=== PATIENT | male | born 1950 | race Caucasian/White ===

== ENCOUNTER 2017-01-16 07:46 | Outpatient (CLI) | payer MEDICARE, OTHER ==
[2017-01-16 08:46] LABS: BASOPHILS % (AUTO) 0.6 %; EOSINOPHILS # (AUTO) 0.3 10^3/uL (0.0-0.7); EOSINOPHILS % (AUTO) 4.1 %; HCT - HEMATOCRIT 36.7 % (42.0-52.0); HGB - HEMOGLOBIN 12.8 g/dL (14.0-18.0); LYMPHOCYTES # (AUTO) 0.6 10^3/uL (1.5-3.5); LYMPHOCYTES % (AUTO) 10.4 %; MEAN CORPUSCULAR HGB CONC 34.8 g/dL (32.0-36.0); MEAN CORPUSCULAR VOLUME 91.8 fL (80.0-94.0); MONOCYTES # (AUTO) 0.8 10^3/uL (0.0-1.0); MONOCYTES % (AUTO) 13.3 %; NEUTROPHILS # (AUTO) 4.4 10^3/uL (1.5-6.6); NEUTROPHILS % (AUTO) 71.6 %; RED CELL DISTRIBUTION WIDTH 14.7 % (12.0-15.0); UNCORRECTED WHITE BLOOD COUNT 6.1 x10^3/uL; WHITE BLOOD COUNT 6.1 x10^3/uL (4.8-10.8)
[2017-01-16 09:13] LABS: ALBUMIN/GLOBULIN RATIO 1.1 (1.0-2.2); BILIRUBIN,TOTAL 0.4 mg/dL (0.2-1.0); BUN - BLOOD UREA NITROGEN 14 mg/dL (6-20); CARBON DIOXIDE - CO2 27 mmol/L (21-32); CHLORIDE 101 mmol/L (101-111); CHOL/HDL RATIO 5.9 (<5.0); CHOLESTEROL 142 mg/dL; CREATININE 1.2 mg/dL (0.6-1.2); GFR - MDRD 61 (>89); GLUCOSE 107 mg/dL (70-100); HDL CHOLESTEROL 24 mg/dL; LDL/HDL RATIO 1.7 (<3.6); POTASSIUM 3.7 mmol/L (3.5-5.0); SODIUM 137 mmol/L (135-145); TOTAL PROTEIN 7.6 g/dL (6.7-8.2); TRIGLYCERIDES 386 mg/dL; VLDL CHOLESTEROL 77 mg/dL
[2017-01-16 09:18] LABS: BILIRUBIN,URINE NEGATIVE (NEGATIVE)
[2017-01-16 09:51] LABS: THYROID STIMULATING HORMONE 8.7 uIU/mL (0.34-5.60)
[2017-01-16 10:01] LABS: UR CULTURE IF IND NOT INDICATED; WBC,URINE 0-3 /HPF (0-3)
== END 2017-01-16 07:47 | disposition home or self-care (01) ==
LOC: LAB 07:46
PROVIDERS: ATTEND Family Medicine
DX: I10 Essential (primary) hypertension (principal); E78.5 Hyperlipidemia, unspecified; E03.9 Hypothyroidism, unspecified; D50.9 Iron deficiency anemia, unspecified; M34.81 Systemic sclerosis with lung involvement
CPT/HCPCS: 36415; 80053; 80061; 81001; 84439; 84443; 85025; 87086

== ENCOUNTER 2017-04-01 08:55 | Outpatient (CLI) | payer MEDICARE, OTHER ==
[2017-04-01 13:06] LABS: BASOPHILS # (AUTO) 0.1 10^3/uL (0.0-0.1); BASOPHILS % (AUTO) 0.7 %; EOSINOPHILS # (AUTO) 0.3 10^3/uL (0.0-0.7); EOSINOPHILS % (AUTO) 3.3 %; HGB - HEMOGLOBIN 12.2 g/dL (14.0-18.0); LYMPHOCYTES # (AUTO) 0.8 10^3/uL (1.5-3.5); LYMPHOCYTES % (AUTO) 9.2 %; MEAN CORPUSCULAR HEMOGLOBIN 31.1 pg (27.0-31.0); MEAN CORPUSCULAR VOLUME 91.5 fL (80.0-94.0); MEAN PLATELET VOLUME 9.1 fL (7.4-11.4); MONOCYTES % (AUTO) 11.5 %; NEUTROPHILS # (AUTO) 6.6 10^3/uL (1.5-6.6); NEUTROPHILS % (AUTO) 75.3 %; PLT - PLATELET COUNT 173 10^3/uL (130-450); RED BLOOD COUNT 3.93 10^6/uL (4.70-6.10); RED CELL DISTRIBUTION WIDTH 14.4 % (12.0-15.0); WHITE BLOOD COUNT 8.7 x10^3/uL (4.8-10.8)
== END 2017-04-01 08:56 | disposition home or self-care (01) ==
LOC: LAB.WCP 08:55
PROVIDERS: ATTEND Family Medicine
DX: M79.671 Pain in right foot (principal); D50.9 Iron deficiency anemia, unspecified
CPT/HCPCS: 36415; 85025

== ENCOUNTER 2017-04-25 07:11 | Outpatient (CLI) | payer MEDICARE, OTHER ==
[2017-04-25 08:08] LABS: HB2 TOTAL 13.2 g/dL; HEMOGLOBIN A1C 0.58 g/dL; HEMOGLOBIN A1C % 6.2 % (4.6-6.2)
[2017-04-25 08:09] LABS: ALBUMIN/GLOBULIN RATIO 1.1 (1.0-2.2); ALKALINE PHOSPHATASE 69 IU/L (42-121); ALT ALANINE AMINOTRANSFERASE 64 IU/L (10-60); AST ASPARTATE AMINOTRANSFERASE 32 IU/L (10-42); BILIRUBIN,TOTAL 0.7 mg/dL (0.2-1.0); BUN - BLOOD UREA NITROGEN 17 mg/dL (6-20); CARBON DIOXIDE - CO2 28 mmol/L (21-32); CHLORIDE 98 mmol/L (101-111); CHOL/HDL RATIO 4.3 (<5.0); CHOLESTEROL 130 mg/dL; CREATININE 1.1 mg/dL (0.6-1.2); GFR - MDRD 67 (>89); GLUCOSE 105 mg/dL (70-100); HDL CHOLESTEROL 30 mg/dL; LDL CHOLESTEROL,CALCULATED 58 mg/dL; LDL/HDL RATIO 1.9 (<3.6); SODIUM 134 mmol/L (135-145); TOTAL PROTEIN 7.5 g/dL (6.7-8.2); URIC ACID 6.6 mg/dL (2.6-7.2); VLDL CHOLESTEROL 42 mg/dL
[2017-04-25 08:21] LABS: THYROID STIMULATING HORMONE 6.81 uIU/mL (0.34-5.60)
[2017-04-25 08:23] LABS: FREE T4 (FREE THYROXINE) 0.83 ng/dL (0.58-1.64)
== END 2017-04-25 07:12 | disposition home or self-care (01) ==
LOC: LAB 07:11
PROVIDERS: ATTEND Family Medicine
DX: E78.5 Hyperlipidemia, unspecified (principal); G62.9 Polyneuropathy, unspecified; E03.9 Hypothyroidism, unspecified; I10 Essential (primary) hypertension; Z79.899 Other long term (current) drug therapy
CPT/HCPCS: 36415; 80053; 80061; 83036; 83721; 84439; 84443; 84481; 84550

== ENCOUNTER 2017-04-25 07:28 | Emergency (ER) | payer MEDICARE, OTHER ==
--- NOTE | 2017-04-25 08:15 | ED Physician Documentation ---
PD HPI URI - Stated complaint Stated Complaint: CHEST CONGESTION,WHEEZING - Chief complaint Chief Complaint: Resp - History obtained from History obtained from: Patient - History of Present Illness Timing - onset: How many days ago (4) Timing duration: Days Timing details: Gradual onset, Still present (worsening with some productive cough and feeling wheezing.) Associated symptoms: Chills, Productive cough, Dyspnea. No: Fever, Hemoptysis, Chest pain, Bilateral edema Contributing factors: Immunocompromised. No: Sick contact, Travel, COPD / asthma Similar symptoms before: Has not had sx before Recently seen: Clinic (he is on investigational drug for pulmonary HTN which is immune suppressing (combination med with Cellcept).) Review of Systems Constitutional: reports: Chills, Myalgias, Fatigue. denies: Fever Nose: reports: Rhinorrhea / runny nose, Congestion Throat: denies: Sore throat Cardiac: denies: Palpitations Respiratory: reports: Cough, Wheezing GI: reports: Nausea. denies: Abdominal Pain, Vomiting, Diarrhea Skin: denies: Rash, Lesions PD PAST MEDICAL HISTORY - Past Medical History Past Medical History: Yes Cardiovascular: Other (pulmonary HTN) - Present Medications Home Medications: Ambulatory Orders Medication Instructions Recorded Confirmed Albuterol Sulf [Ventolin Hfa 1 - 2 puffs INH Q4HR PRN #1 inhaler 04/25/17 Inhaler] Alpha Lipoic Acid 600 mg PO TID 04/25/17 04/25/17 Amitriptyline [Elavil] 25 mg PO DAILY 04/25/17 04/25/17 Aspirin [Aspirin EC] 81 mg PO DAILY 04/25/17 04/25/17 Azithromycin [Zithromax] 250 mg PO DAILY #6 tablet 04/25/17 Benzonatate [Tessalon] 100 mg PO TID PRN #25 capsule 04/25/17 Carvedilol 25 mg PO BID 04/25/17 04/25/17 DULoxetine [Cymbalta] 30 mg PO DAILY 04/25/17 04/25/17 Dexamethasone [Decadron] 4 mg PO DAILY #5 tablet 04/25/17 Ferrous Sulfate 1 tab PO BID 04/25/17 04/25/17 Finasteride 5 mg PO DAILY 04/25/17 04/25/17 Gabapentin 600 mg PO DAILY 04/25/17 04/25/17 Hydrochlorothiazide 25 mg PO DAILY 04/25/17 04/25/17 Levothyroxine [Synthroid] 125 mcg PO DAILY 04/25/17 04/25/17 Losartan Potassium 25 mg PO DAILY 04/25/17 04/25/17 Macitentan [Opsumit] 10 mg PO DAILY 04/25/17 04/25/17 Mycophenolate Mofetil [Cellcept] 500 mg PO BID 04/25/17 04/25/17 [place]-3/Dha/Epa/Fish Oil [Fish Oil 1 tab PO BID 04/25/17 04/25/17 1,000 mg Softgel] Terazosin [Hytrin] 10 mg PO DAILY 04/25/17 04/25/17 Valacyclovir HCl [Valacyclovir] 250 mg PO DAILY 04/25/17 04/25/17 Vit B Cmplx 3/FA/Vit C/Biotin 1 tab PO DAILY 04/25/17 04/25/17 [Katina-Dayanna Rx Tablet] - Allergies Allergies/Adverse Reactions: Allergies Allergy/AdvReac Type Severity Reaction Status Date / Time Penicillins Allergy Anaphylaxis Verified 04/25/17 07:42 - Living Situation Living Arrangement: reports: At home - Social History Does the pt smoke?: No - Family History Family history: reports: Non contributory PD ED PE NORMAL - Vitals Vital signs reviewed: Yes - General General: Alert and oriented X 3, No acute distress, Well developed/nourished - HEENT HEENT: Ears normal, Pharynx benign - Neck Neck: Supple, no meningeal sign, No adenopathy - Cardiac Cardiac: RRR, No murmur - Respiratory Respiratory: Clear bilaterally - Abdomen Abdomen: Soft, Non tender - Derm Derm: Normal color, Warm and dry, No rash Results - Vitals Vitals: Vital Signs - 24 hr 04/25/17 04/25/17 07:37 09:06 Temperature 37.1 C 36.7 C Heart Rate 79 68 Respiratory 16 15 Rate Blood Pressure 115/55 L 123/68 O2 Saturation 94 94 Oxygen O2 Source Room air PD MEDICAL DECISION MAKING - ED course Complexity details: re-evaluated patient (most likely is viral URI but with his immune suppression, would cover with abx as well. No signs of pneumonia. ), considered differential, d/w patient Departure - Departure Disposition: 01 Home, Self Care Clinical Impression: Upper respiratory infection Qualifiers: URI type: unspecified URI Qualified Code(s): J06.9 - Acute upper respiratory infection, unspecified Condition: Stable Record reviewed to determine appropriate education?: Yes Follow-Up: Chelsea Beltre MD [Primary Care Provider] - Prescriptions: Albuterol Sulf [Ventolin Hfa Inhaler] 1 - 2 puffs INH Q4HR PRN #1 inhaler PRN Reason: Shortness Of Air/Wheezing Azithromycin [Zithromax] 250 mg PO DAILY #6 tablet Benzonatate [Tessalon] 100 mg PO TID PRN #25 capsule PRN Reason: Cough Dexamethasone [Decadron] 4 mg PO DAILY #5 tablet Comments: Drink lots of fluids. Continue usual medications. Zithromax antibiotic for 5 days. Decadron steroid for 5 days. Use albuterol inhaler 2 puffs 4 times a day for the next 7-10 days. Tessalon if needed for cough. Recheck if not improving over the next few days and sooner if worse. Discharge Date/Time: 04/25/17 09:08
[2017-04-25] MEDS ORDERED: DEXAMETHASONE 10 MG/ML VIAL PO STA (08:32)
[2017-04-25] MEDS ORDERED: BENZONATATE 100 MG CAPSULE PO STA (08:32)
[2017-04-25 09:08] VITALS: BP 123/68
== END 2017-04-25 09:08 | disposition home or self-care (01) ==
LOC: ED 07:28
DX: J06.9 Acute upper respiratory infection, unspecified (principal); E78.5 Hyperlipidemia, unspecified; G62.9 Polyneuropathy, unspecified; E03.9 Hypothyroidism, unspecified; I10 Essential (primary) hypertension; Z79.899 Other long term (current) drug therapy
CPT/HCPCS: 36415; 80053; 80061; 83036; 84439; 84443; 84481; 84550; 99283; A9270; 83721

== ENCOUNTER 2017-05-14 13:27 | Outpatient (CLI) | payer MEDICARE, OTHER | END 2017-05-14 13:28 | disposition home or self-care (01) | LOC: SC 13:27 | PROVIDERS: ATTEND Internal Medicine Pulmonary Disease | DX: G47.33 Obstructive sleep apnea (adult) (pediatric) (principal) | CPT/HCPCS: 99203; G0463; 99212 ==

== ENCOUNTER 2017-05-23 11:54 | Outpatient (CLI) | payer MEDICARE, OTHER ==
[2017-05-23 19:25] LABS: THYROID STIMULATING HORMONE 4.22 uIU/mL (0.34-5.60)
[2017-05-23 19:27] LABS: FREE T4 (FREE THYROXINE) 0.97 ng/dL (0.58-1.64)
== END 2017-05-23 11:55 | disposition home or self-care (01) ==
LOC: LAB.WCP 11:54
PROVIDERS: ATTEND Family Medicine
DX: E03.9 Hypothyroidism, unspecified (principal)
CPT/HCPCS: 36415; 84439; 84443; 84481

== ENCOUNTER 2017-07-16 20:28 | Outpatient (CLI) | payer MEDICARE, OTHER | END 2017-07-16 20:29 | disposition home or self-care (01) | LOC: SC 20:28 | PROVIDERS: ATTEND Internal Medicine Pulmonary Disease | DX: G47.33 Obstructive sleep apnea (adult) (pediatric) (principal); G47.61 Periodic limb movement disorder | CPT/HCPCS: 95810 ==

== ENCOUNTER 2017-08-01 08:48 | Outpatient (CLI) | payer MEDICARE, OTHER | END 2017-08-01 08:49 | disposition home or self-care (01) | LOC: LAB 08:48 | PROVIDERS: ATTEND Family Medicine | DX: E03.9 Hypothyroidism, unspecified (principal) | CPT/HCPCS: 36415; 84443; 84481 ==

== ENCOUNTER 2017-08-27 10:14 | Outpatient (CLI) | payer MEDICARE, OTHER | END 2017-08-27 10:15 | disposition home or self-care (01) | LOC: SC 10:14 | PROVIDERS: ATTEND Internal Medicine Pulmonary Disease | DX: G47.33 Obstructive sleep apnea (adult) (pediatric) (principal); G47.61 Periodic limb movement disorder | CPT/HCPCS: 99213; G0463; 99212 ==

== ENCOUNTER 2017-09-04 08:12 | Outpatient (CLI) | payer MEDICARE, OTHER ==
[2017-09-04 10:18] LABS: THYROID STIMULATING HORMONE 5.76 uIU/mL (0.34-5.60)
[2017-09-04 10:20] LABS: FREE T4 (FREE THYROXINE) 0.97 ng/dL (0.58-1.64)
== END 2017-09-04 08:13 | disposition home or self-care (01) ==
LOC: LAB 08:12
PROVIDERS: ATTEND Family Medicine
DX: E03.9 Hypothyroidism, unspecified (principal)
CPT/HCPCS: 36415; 84439; 84443; 84481

== ENCOUNTER 2017-10-08 10:45 | Outpatient (CLI) | payer MEDICARE, OTHER ==
[2017-10-08 13:01] LABS: THYROID STIMULATING HORMONE 1.39 uIU/mL (0.34-5.60)
== END 2017-10-08 10:46 | disposition home or self-care (01) ==
LOC: LAB 10:45
PROVIDERS: ATTEND Family Medicine
DX: E03.9 Hypothyroidism, unspecified (principal)
CPT/HCPCS: 36415; 84439; 84443; 84481

== ENCOUNTER 2017-11-14 10:15 | Outpatient (CLI) | payer MEDICARE, OTHER | END 2017-11-14 10:16 | disposition home or self-care (01) | LOC: SC 10:15 | PROVIDERS: ATTEND Internal Medicine Pulmonary Disease | DX: G47.33 Obstructive sleep apnea (adult) (pediatric) (principal) | CPT/HCPCS: 99213; G0463; 99212 ==

== ENCOUNTER 2018-01-24 09:59 | Outpatient (CLI) | payer MEDICARE, OTHER ==
[2018-01-24 17:53] LABS: BASOPHILS % (AUTO) 0.5 %; EOSINOPHILS # (AUTO) 0.1 10^3/uL (0.0-0.7); EOSINOPHILS % (AUTO) 1.7 %; HGB - HEMOGLOBIN 13.1 g/dL (14.0-18.0); LYMPHOCYTES # (AUTO) 0.7 10^3/uL (1.5-3.5); LYMPHOCYTES % (AUTO) 10.2 %; MEAN CORPUSCULAR HEMOGLOBIN 31.2 pg (27.0-31.0); MEAN CORPUSCULAR HGB CONC 33.2 g/dL (32.0-36.0); MEAN CORPUSCULAR VOLUME 93.9 fL (80.0-94.0); MEAN PLATELET VOLUME 8.9 fL (7.4-11.4); MONOCYTES # (AUTO) 0.6 10^3/uL (0.0-1.0); NEUTROPHILS # (AUTO) 5.5 10^3/uL (1.5-6.6); NEUTROPHILS % (AUTO) 78.6 %; PLT - PLATELET COUNT 161 10^3/uL (130-450); RED CELL DISTRIBUTION WIDTH 14.8 % (12.0-15.0); WHITE BLOOD COUNT 7.1 x10^3/uL (4.8-10.8)
[2018-01-24 18:14] LABS: ALBUMIN 4.1 g/dL (3.2-5.5); ALBUMIN/GLOBULIN RATIO 1.6 (1.0-2.2); BILIRUBIN,TOTAL 0.4 mg/dL (0.2-1.0); CALCIUM 8.8 mg/dL (8.5-10.3); TOTAL PROTEIN 6.7 g/dL (6.7-8.2)
== END 2018-01-24 10:00 | disposition home or self-care (01) ==
LOC: LAB.F 09:59
PROVIDERS: ATTEND Family Medicine
DX: R10.9 Unspecified abdominal pain (principal)
CPT/HCPCS: 36415; 80053; 82150; 83690; 85025

== ENCOUNTER 2018-02-27 16:30 | Outpatient (CLI) | payer MEDICARE, OTHER | END 2018-02-27 23:59 | disposition home or self-care (01) | LOC: LAB.R 16:30 | PROVIDERS: ATTEND Physician Assistant Medical | DX: N39.0 Urinary tract infection, site not specified (principal) | CPT/HCPCS: 87086 ==

== ENCOUNTER 2018-03-18 08:34 | Outpatient (CLI) | payer MEDICARE, OTHER ==
[2018-03-18 08:49] LABS: BILIRUBIN,URINE NEGATIVE (NEGATIVE); CLARITY,URINE CLEAR (CLEAR); GLUCOSE, URINE (UA) NEGATIVE (NEGATIVE); KETONES,URINE (UA) NEGATIVE (NEGATIVE); LEUKOCYTE ESTERASE, URINE NEGATIVE (NEGATIVE); NITRITE,URINE NEGATIVE (NEGATIVE); OCCULT BLOOD,URINE NEGATIVE (NEGATIVE); PH,URINE 5.5 PH (5.0-7.5); PROTEIN,URINE NEGATIVE (NEGATIVE); UROBILINOGEN,URINE 0.2 (NORMAL) E.U./dL (NORMAL)
[2018-03-18 08:56] LABS: BACTERIA,URINE None Seen /HPF (None Seen); RBC,URINE None Seen /HPF (0-5); SQUAMOUS EPITHELIAL CELL,UR NONE SEEN (<= Few)
== END 2018-03-18 08:35 | disposition home or self-care (01) ==
LOC: LAB 08:34
PROVIDERS: ATTEND Physician Assistant Medical
DX: N39.0 Urinary tract infection, site not specified (principal)
CPT/HCPCS: 81001; 87086

== ENCOUNTER 2018-04-06 18:58 | Emergency (ER) | payer MEDICARE, OTHER ==
[2018-04-06 19:05] VITALS: BP 149/57
[2018-04-06] MEDS ORDERED: DOXYCYCLINE 100 MG TABLET PO STA (19:30)
[2018-04-06] MEDS ORDERED: BENZONATATE 100 MG CAPSULE PO STA (19:30)
--- NOTE | 2018-04-06 19:35 | ED Physician Documentation ---
PD HPI URI - Stated complaint Stated Complaint: LT SIDE PX/COUGH - Chief complaint Chief Complaint: Resp - History obtained from History obtained from: Patient - History of Present Illness Timing - onset: Other (This is a 67-year-old gentleman with underlying pulmonary fibrosis and pulmonary hypertension who presents with a 6-day illness of nonproductive cough, fevers, chills, body aches. His is also sick and has influenza a.) Review of Systems Constitutional: reports: Fever, Chills, Myalgias Nose: reports: Rhinorrhea / runny nose Throat: denies: Sore throat Respiratory: reports: Cough. denies: Dyspnea GI: denies: Abdominal Pain PD PAST MEDICAL HISTORY - Past Medical History Cardiovascular: Other (pulmonary HTN) Respiratory: Sleep apnea, CPAP use, Other Endocrine/Autoimmune: HyPOthyroidism Psych: Depression - Present Medications Home Medications: Ambulatory Orders Medication Instructions Recorded Confirmed Albuterol Sulf [Ventolin Hfa 1 - 2 puffs INH Q4HR PRN #1 inhaler 04/25/17 Inhaler] Alpha Lipoic Acid 600 mg PO TID 04/25/17 04/25/17 Amitriptyline [Elavil] 25 mg PO DAILY 04/25/17 04/25/17 Aspirin [Aspirin EC] 81 mg PO DAILY 04/25/17 04/25/17 Azithromycin [Zithromax] 250 mg PO DAILY #6 tablet 04/25/17 Benzonatate [Tessalon] 100 mg PO TID PRN #25 capsule 04/25/17 Carvedilol 25 mg PO BID 04/25/17 04/25/17 DULoxetine [Cymbalta] 30 mg PO DAILY 04/25/17 04/25/17 Dexamethasone [Decadron] 4 mg PO DAILY #5 tablet 04/25/17 Ferrous Sulfate 1 tab PO BID 04/25/17 04/25/17 Finasteride 5 mg PO DAILY 04/25/17 04/25/17 Gabapentin 600 mg PO DAILY 04/25/17 04/25/17 Hydrochlorothiazide 25 mg PO DAILY 04/25/17 04/25/17 Levothyroxine [Synthroid] 125 mcg PO DAILY 04/25/17 04/25/17 Losartan Potassium 25 mg PO DAILY 04/25/17 04/25/17 Macitentan [Opsumit] 10 mg PO DAILY 04/25/17 04/25/17 Mycophenolate Mofetil [Cellcept] 500 mg PO BID 04/25/17 04/25/17 [place]-3/Dha/Epa/Fish Oil [Fish Oil 1 tab PO BID 04/25/17 04/25/17 1,000 mg Softgel] Terazosin [Hytrin] 10 mg PO DAILY 04/25/17 04/25/17 Valacyclovir HCl [Valacyclovir] 250 mg PO DAILY 04/25/17 04/25/17 Vit B Comp No.3/Folic/C/Biotin 1 tab PO DAILY 04/25/17 04/25/17 [Katina-Dayanna Rx Tablet] Benzonatate [Tessalon Perle] 100 - 200 mg PO TID PRN #30 capsule 04/06/18 Doxycycline Hyclate 100 mg PO BID #20 capsule 04/06/18 - Allergies Allergies/Adverse Reactions: Allergies Allergy/AdvReac Type Severity Reaction Status Date / Time Penicillins Allergy Anaphylaxis Verified 04/06/18 19:05 - Social History Does the pt smoke?: No Smoking Status: Never smoker PD ED PE NORMAL - Vitals Vital signs reviewed: Yes - General General: Alert and oriented X 3, No acute distress - HEENT HEENT: Ears normal, Pharynx benign - Neck Neck: Supple, no meningeal sign, No bony TTP - Cardiac Cardiac: RRR, No murmur - Respiratory Respiratory: No respiratory distress, Clear bilaterally - Abdomen Abdomen: Non tender - Derm Derm: No rash - Extremities Extremities: No edema, No calf tenderness / cord Results - Vitals Vitals: Vital Signs - 24 hr 04/06/18 19:04 Temperature 36.8 C Heart Rate 86 Respiratory 18 Rate Blood Pressure 149/57 H O2 Saturation 95 Oxygen O2 Source Room air PD MEDICAL DECISION MAKING - ED course ED course: This is a 67-year-old gentleman with underlying lung disease who likely has influenza but is well outside of the treatment window For Tamiflu. That said given the underlying lung disease and protracted course of trial of antibiotics does seem reasonable. Departure - Departure Disposition: 01 Home, Self Care Clinical Impression: Bronchitis Condition: Good Record reviewed to determine appropriate education?: Yes Instructions: ED Upper Resp Infec Abx Tx Prescriptions: Benzonatate [Tessalon Perle] 100 - 200 mg PO TID PRN #30 capsule PRN Reason: Cough Doxycycline Hyclate 100 mg PO BID #20 capsule Comments: Call your doctor to arrange a follow-up appointment, make the next available appointment. In the interim, return anytime if worse or if new symptoms develop. Your blood pressure was elevated today on check into the emergency department. This does not mean that you have hypertension, it is a common phenomenon to come to the emergency department and have elevated blood pressure. I recommend that you see your primary care physician within the week to have it rechecked when you are feeling better.
== END 2018-04-06 19:56 | disposition home or self-care (01) ==
LOC: ED 18:58
DX: J40 Bronchitis, not specified as acute or chronic (principal); J84.10 Pulmonary fibrosis, unspecified; R03.0 Elevated blood-pressure reading, without diagnosis of hypertension; I27.20 Pulmonary hypertension, unspecified; Z79.82 Long term (current) use of aspirin
CPT/HCPCS: 99283; A9270

== ENCOUNTER 2018-04-08 07:25 | Inpatient (IN) | payer MEDICARE, OTHER ==
--- NOTE | 2018-04-08 07:33 | ED Physician Documentation ---
PD HPI URI - Stated complaint Stated Complaint: SOA/RIB PX/COUGH - History obtained from History obtained from: Patient, Family - History of Present Illness Timing - onset: How many days ago (5-6) Timing duration: Days (5-6) Timing details: Gradual onset, Still present (He has had a cough with sputum production and left-sided chest pain with coughing for the last 5 or 6 days. He has had muscle aches fatigue nausea and diarrhea along with it. His has flu a and he was presuming to have the flu as well. However he had significant amount of coughing and trouble breathing to. He has underlying pulmonary fibrosis. He came into the ER 2 days ago for evaluation and was prescribed Tessalon and doxycycline for concern of bacterial secondary infection. He states he is not improved and is feeling worse. He states his oximetry is at home have been down to the upper 70s to low 80s at times with a baseline being 88-92 on 2 L nasal cannula continuous. This morning he also had some blood streaks in with the sputum and is hurting more in the left chest with coughing.) Associated symptoms: Chills, Productive cough, Hemoptysis (today), NVD (nausea and diarrhea, but not vomited. Less oral intake.). No: Fever Contributing factors: Sick contact (both he and his got sick about same time. She has Flu-A), Immunocompromised. No: COPD / asthma (but has PAH, pulmonary fibrosis. No COPD nor asthma.) Improves by: No: O2 Recently seen: Emergency Dept (2 days ago) Review of Systems Constitutional: reports: Chills, Myalgias, Fatigue. denies: Fever Nose: reports: Congestion. denies: Rhinorrhea / runny nose Throat: denies: Sore throat Cardiac: reports: Chest pain / pressure (left chest with cough and deep breathing) Respiratory: reports: Dyspnea, Cough, Hemoptysis (today, small amount blood with sputum), Wheezing GI: reports: Nausea, Diarrhea. denies: Abdominal Pain, Vomiting, Bloody / black stool Skin: denies: Rash, Lesions PD PAST MEDICAL HISTORY - Past Medical History Cardiovascular: Hypertension, Valve disorder, Other Respiratory: Pneumonia, Sleep apnea, CPAP use, Other Neuro: None Endocrine/Autoimmune: HyPOthyroidism GI: None : None Psych: Depression Musculoskeletal: None Derm: None - Past Surgical History Past Surgical History: Yes General: Cholecystectomy Cardiovascular: Valve replacement - Present Medications Home Medications: Ambulatory Orders Medication Instructions Recorded Confirmed Albuterol Sulf [Ventolin Hfa 1 - 2 puffs INH Q4HR PRN #1 inhaler 04/25/17 04/08/18 Inhaler] Alpha Lipoic Acid 600 mg PO TID 04/25/17 04/08/18 Amitriptyline [Elavil] 25 mg PO DAILY 04/25/17 04/08/18 Aspirin [Aspirin EC] 81 mg PO DAILY 04/25/17 04/08/18 Azithromycin [Zithromax] 250 mg PO DAILY #6 tablet 04/25/17 04/08/18 Benzonatate [Tessalon] 100 mg PO TID PRN #25 capsule 04/25/17 04/08/18 Carvedilol 25 mg PO BID 04/25/17 04/08/18 DULoxetine [Cymbalta] 30 mg PO DAILY 04/25/17 04/08/18 Dexamethasone [Decadron] 4 mg PO DAILY #5 tablet 04/25/17 04/08/18 Ferrous Sulfate 1 tab PO BID 04/25/17 04/08/18 Finasteride 5 mg PO DAILY 04/25/17 04/08/18 Gabapentin 600 mg PO DAILY 04/25/17 04/08/18 Hydrochlorothiazide 25 mg PO DAILY 04/25/17 04/08/18 Levothyroxine [Synthroid] 125 mcg PO DAILY 04/25/17 04/08/18 Losartan Potassium 25 mg PO DAILY 04/25/17 04/08/18 Macitentan [Opsumit] 10 mg PO DAILY 04/25/17 04/08/18 Mycophenolate Mofetil [Cellcept] 500 mg PO BID 04/25/17 04/08/18 [place]-3/Dha/Epa/Fish Oil [Fish Oil 1 tab PO BID 04/25/17 04/08/18 1,000 mg Softgel] Terazosin [Hytrin] 10 mg PO DAILY 04/25/17 04/08/18 Valacyclovir HCl [Valacyclovir] 250 mg PO DAILY 04/25/17 04/08/18 Vit B Comp No.3/Folic/C/Biotin 1 tab PO DAILY 04/25/17 04/08/18 [Katina-Dayanna Rx Tablet] Benzonatate [Tessalon Perle] 100 - 200 mg PO TID PRN #30 capsule 04/06/18 04/08/18 Doxycycline Hyclate 100 mg PO BID #20 capsule 04/06/18 04/08/18 - Allergies Allergies/Adverse Reactions: Allergies Allergy/AdvReac Type Severity Reaction Status Date / Time Penicillins Allergy Anaphylaxis Verified 04/08/18 07:35 - Social History Does the pt smoke?: No Smoking Status: Never smoker Does the pt drink ETOH?: No Does the pt have substance abuse?: No - Immunizations Immunizations are current?: Yes - POLST Patient has POLST: No PD ED PE NORMAL - Vitals Vital signs reviewed: Yes - General General: Alert and oriented X 3, Well developed/nourished, Other (some prolonged expiratory phase breathing. Marked pain with coughing, and holding left ribs. ) - HEENT HEENT: Ears normal, Pharynx benign (pasty but not infected looking). No: Moist mucous membranes - Neck Neck: Supple, no meningeal sign, No adenopathy, No JVD - Cardiac Cardiac: RRR, No murmur - Respiratory Respiratory: No: Clear bilaterally (diffuse mild cellophane sounds c/w fibrosis. Moderate expiratory wheezing more to the right. Somewhat diminished sounds on left base. Left chest wall is tender lateral lower ribs area. ) - Abdomen Abdomen: Soft, Non tender - Derm Derm: Normal color, Warm and dry - Extremities Extremities: No deformity, Normal ROM s pain, No edema, No calf tenderness / cord - Neuro Neuro: Alert and oriented X 3, No motor deficit, Normal speech Results - Vitals Vitals: Vital Signs - 24 hr 04/08/18 04/08/18 04/08/18 07:33 07:39 08:15 Temperature 36.8 C Heart Rate 97 83 Respiratory 24 22 Rate Blood Pressure 161/65 H O2 Saturation 88 L 92 04/08/18 04/08/18 08:26 09:16 Temperature Heart Rate 84 83 Respiratory 22 26 H Rate Blood Pressure 122/66 123/81 H O2 Saturation 92 91 L Oxygen O2 Source Nasal cannula Oxygen Flow Rate 3 - Labs Labs: Laboratory Tests 04/08/18 04/08/18 04/08/18 08:03 08:03 08:03 WBC 5.6 RBC 3.65 L Hgb 11.6 L Hct 32.8 L MCV 89.8 MCH 31.7 H MCHC 35.3 RDW 14.6 Plt Count 133 MPV 7.6 Neut # (Auto) 5.0 Lymph # (Auto) 0.2 L [place] # (Auto) 0.4 Eos # (Auto) 0.0 Baso # (Auto) 0.0 Absolute Nucleated RBC 0.00 Nucleated RBC % 0.1 Sodium 129 L Potassium 3.2 L Chloride 96 L Carbon Dioxide 25 Anion Gap 8.0 BUN 31 H Creatinine 1.3 H Estimated GFR (MDRD) 55 L Glucose 135 H Lactic Acid 0.8 Calcium 8.2 L Magnesium 2.0 Total Bilirubin 0.7 AST 42 ALT 47 Alkaline Phosphatase 43 B-Natriuretic Peptide Total Protein 6.4 L Albumin 3.3 Globulin 3.1 Albumin/Globulin Ratio 1.1 Lipase 49 04/08/18 08:03 WBC RBC Hgb Hct MCV MCH MCHC RDW Plt Count MPV Neut # (Auto) Lymph # (Auto) [place] # (Auto) Eos # (Auto) Baso # (Auto) Absolute Nucleated RBC Nucleated RBC % Sodium Potassium Chloride Carbon Dioxide Anion Gap BUN Creatinine Estimated GFR (MDRD) Glucose Lactic Acid Calcium Magnesium Total Bilirubin AST ALT Alkaline Phosphatase B-Natriuretic Peptide 166 H Total Protein Albumin Globulin Albumin/Globulin Ratio Lipase - Rads (name of study) chest xray Radiology: Prelim report reviewed (patchy areas more consolidated c/w likely pneumonia. ), EMP read contemporaneously, See rad report PD MEDICAL DECISION MAKING - ED course Complexity details: re-evaluated patient (His breathing did improve with a nebulizer treatment. He was also given some pain medicine for his pleuritic pain which is helping as well. His oxygen sats are now 90-92% on nasal cannula which is closer to his baseline. He does have a pneumonia appearance and has been on oral antibiotics for 2 days. I think he may need continued treatment in the hospital initially to ensure he is doing consistently well and to initiate bronchodilator medications and stronger antibiotics. I will talk with the hospitalist.), considered differential (History of full murmur luminary fibrosis and is on chronic prednisone at 10 mg. He has the restrictive lung disease without any COPD nor asthma and so does not use any home nebulizers or inhalers. He is on home oxygen continually and states despite that his saturations at home were going down into the lower 80s to upper 70s at times. He has had increased cough despite Tessalon and doxycycline. Concern for pneumonia and will get labs chest x-ray and will try a nebulizer to see if there is some reversible component with the current illness. I would give increased dose of his steroid as a stress dose anyway and to help with inflammation along with the illness. We will see how he does with some fluids and pain medicine as well to help with the rib and pleuritic pain. Regroup after the initial treatments x- ray and labs and see if he may need hospitalization.), d/w patient Departure - Departure Disposition: [facility] DC/Xfer Clinical Impression: Pleuritic chest pain, Pulmonary fibrosis, Hypoxia Dyspnea Qualifiers: Dyspnea type: shortness of breath Qualified Code(s): R06.02 - Shortness of breath; R06.00 - Dyspnea, unspecified; R06.01 - Orthopnea Pneumonia Qualifiers: Pneumonia type: due to unspecified organism Laterality: right Lung location: middle lobe of lung Qualified Code(s): J18.1 - Lobar pneumonia, unspecified organism Condition: Stable Record reviewed to determine appropriate education?: Yes
[2018-04-08] MEDS ORDERED: ALBUTEROL NEB 2.5 MG/3 ML INH STA ×2 (07:50→09:40)
[2018-04-08] MEDS ORDERED: HYDROmorphone 1 MG/ML CARPUJECT IVP STA (07:50)
[2018-04-08] MEDS ORDERED: SODIUM CHLORIDE 0.9% 1,000 ML IV ONE (07:50)
[2018-04-08] MEDS ORDERED: DEXAMETHASONE 10 MG/ML VIAL IVP STA (07:51)
[2018-04-08] MEDS ORDERED: KETOROLAC 15 MG/ML VIAL IVP STA (07:51)
[2018-04-08] MEDS ORDERED: ONDANSETRON 4 MG/2 ML VIAL IVP STA (07:51)
[2018-04-08] MEDS ORDERED: AZITHROMYCIN INJ 500 MG in SODIUM CHLORIDE 0.9% 250 ML IV STA (07:54)
[2018-04-08] MEDS ORDERED: cefTRIAXone 1 GM VIAL IVP STA (07:54)
[2018-04-08 08:10] LABS: BASOPHILS % (AUTO) 0.5 %; EOSINOPHILS % (AUTO) 0.1 %; HGB - HEMOGLOBIN 11.6 g/dL (14.0-18.0); LYMPHOCYTES # (AUTO) 0.2 10^3/uL (1.5-3.5); LYMPHOCYTES % (AUTO) 4.2 %; MEAN CORPUSCULAR HEMOGLOBIN 31.7 pg (27.0-31.0); MEAN CORPUSCULAR HGB CONC 35.3 g/dL (32.0-36.0); MEAN CORPUSCULAR VOLUME 89.8 fL (80.0-94.0); MEAN PLATELET VOLUME 7.6 fL (7.4-11.4); MONOCYTES # (AUTO) 0.4 10^3/uL (0.0-1.0); MONOCYTES % (AUTO) 6.9 %; NEUTROPHILS % (AUTO) 88.3 %; PLT - PLATELET COUNT 133 10^3/uL (130-450); RED BLOOD COUNT 3.65 10^6/uL (4.70-6.10); RED CELL DISTRIBUTION WIDTH 14.6 % (12.0-15.0); WHITE BLOOD COUNT 5.6 x10^3/uL (4.8-10.8)
--- NOTE | 2018-04-08 08:34 | XRAY Report ---
Reason: cough, left ribs pain; history of fibrosis Procedure Date: 04/08/2018 Accession Number: [id number] / [id number] Procedure: XR - Chest 2 View X-Ray CPT Code: 30041 FULL RESULT: EXAM: CHEST RADIOGRAPHY EXAM DATE: 04/08/2018 08:15 AM. CLINICAL HISTORY: Cough, left ribs pain; history of fibrosis. COMPARISON: None. TECHNIQUE: 2 views. FINDINGS: Lungs/Pleura: Moderate coarsening of lung markings in the upper right perihilar area in the mid to lower left lung. No peripheral interstitial abnormality. No pneumothorax or pleural fluid. Mediastinum: Borderline cardiomegaly. Sternotomy wires are present. Other: Cholecystectomy clips. Rib detail radiographs are not obtained. Bones are grossly unremarkable. IMPRESSION: 1. No specific findings to explain left-sided pain. 2. Moderate coarsening of upper right lung and mid to lower left lung airspace opacities which may reflect bronchitis or bronchopneumonia. No generalized peripheral interstitial abnormality is identified. RADIA
[2018-04-08 08:37] LABS: ALBUMIN 3.3 g/dL (3.2-5.5); ALBUMIN/GLOBULIN RATIO 1.1 (1.0-2.2); BILIRUBIN,TOTAL 0.7 mg/dL (0.2-1.0); CALCIUM 8.2 mg/dL (8.5-10.3); CREATININE 1.3 mg/dL (0.6-1.2); TOTAL PROTEIN 6.4 g/dL (6.7-8.2)
[2018-04-08] MEDS ORDERED: ACETAMINOPHEN 325 MG TABLET PO PRN (10:22)
[2018-04-08] MEDS ORDERED: ONDANSETRON 4 MG/2 ML VIAL IVP PRN (10:22)
[2018-04-08] MEDS ORDERED: oxyCODONE 5 MG TABLET PO PRN (10:22)
[2018-04-08] MEDS ORDERED: SODIUM CHLORIDE 0.9% 1,000 ML IV SCH (11:00)
--- NOTE | 2018-04-08 11:03 | HISTORY & PHYSICAL EXAMINATION ---
Chief Complaint - Chief Complaint Chief Complaint: cough and flu-like symptoms Respiratory Admission HPI - Admitted From Admitted from: ED - History Obtained From History obtained from: Patient - History of Present Illness Severity at the worst: reports: Moderate Associated Pain Quality Description: reports: Sharp. denies: Burning, Crushing Context of Onset: reports: Exertion, Movement Timing: reports: Gradual onset, Constant Duration: reports: Days: (6) Improved with: reports: Nothing Worsened by: reports: Exertion, Movement, Nothing Associated symptoms: reports: Abdominal pain, Diaphoresis, Nausea, Feeling faint / dizzy, General weakness. denies: Vomiting, Palpitations, Chest pain HPI Comment/Other: Trevor is a 67 year old male with a PMH significant for pulmonary fibrosis and pulmonary hypertensionon chronic steroids followed by pulmonology at , scleroderma also receiving care at , hypothyroidism, depression, hypertension and BPH who presents to the ER after suffering from a cough and flu-like symptoms for 6 days. He was seen in the ED 2 days ago after being sick for 5 days and was discharged home with bonifacio. Of note, his was diagnosed with influenza A roughly 5 days before being seen in the ER 2 days ago. Patient was not tested for the flu or given tamiflu given the window of time between his wifes diagnosis and patient's presentation to the ER. He reports that his is still sick, but getting better. He presented to the ER again today for new onset blood-tinged sputum. He has been coughing so much that he feels his has cracked a rib and has left sided chest/upper abdominal pain. He has experienced sweat/chills, headache, poor appetite, nausea and diarrhea for the last 6 days. He denies CP/palpitations, or vomiting. He has been able to keep fluids down. Per the advisement of his providers, he stopped his cellcept when he started to get sick. In the ER, he was placed on 3L NC, given IVF, ceftriaxone, azithromycin, dexamethasone, albuterol, dilaudid, toradol, and zofran. CXR completed demonstrates moderate coarsening of upper right lung and mid to lower left lung airspace opacities which may reflect bronchitis or bronchopneumonia. He is being admitted to the hospital for treatment of pneumonia. He reports that he is normally on room air during the day, on 2L NC for exercise/exertion and 2L bled into his CPAP at night. He checks his pulse oximetry during the day at has the ability to check it continuously at night. He reports his normal oxygen saturation is in the high 80s to low 90s. He goes up t o 95% at night, but recently with his illness, he has been dipping down into the 80s at night. Patient wishes to be a full code. PMH/PSH - Past Medical History Cardiovascular: positive: Hypertension, Valve disorder, Other Respiratory: positive: Pneumonia, Sleep apnea, CPAP use, Other Neuro: positive: None Endocrine/Autoimmune: positive: HyPOthyroidism GI: positive: None : positive: None, Benign prostate hypertrophy Psych: positive: Depression Musculoskeletal: positive: None Derm: positive: None MRSA Hx?: No - Past Surgical History General: positive: Cholecystectomy Cardiovascular: positive: Valve replacement Social & Family Hx - Living Situation Living Arrangement: At home Living Situation: With spouse/s.o. - Social History Does the pt smoke?: No Smoking Status: Never smoker Does the pt drink ETOH?: No Does the pt have substance abuse?: No Additional Social History: Patient lives at home with his . He has two daughters, one lives locally in [place], and the other lives in [place]. He moved to [facility] in 2017 from [place]. He is a retired naval officer. 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 He and his own an RV and they enjoy traveling around. - POLST Patient has POLST: No Meds/Allgy - Home Medications Home Medications: Ambulatory Orders Medication Instructions Recorded Confirmed Alpha Lipoic Acid 600 mg PO TID 04/25/17 04/08/18 Amitriptyline [Elavil] 25 mg PO DAILY 04/25/17 04/08/18 Aspirin [Aspirin EC] 81 mg PO DAILY 04/25/17 04/08/18 Carvedilol 25 mg PO BID 04/25/17 04/08/18 DULoxetine [Cymbalta] 30 mg PO DAILY 04/25/17 04/08/18 Ferrous Sulfate 325 mg PO BID 04/25/17 04/08/18 Finasteride 5 mg PO DAILY 04/25/17 04/08/18 Gabapentin 600 mg PO DAILY 04/25/17 04/08/18 Hydrochlorothiazide 25 mg PO DAILY 04/25/17 04/08/18 Losartan Potassium 25 mg PO DAILY 04/25/17 04/08/18 Macitentan [Opsumit] 10 mg PO DAILY 04/25/17 04/08/18 Mycophenolate Mofetil [Cellcept] 500 mg PO TIDWM 04/25/17 04/08/18 Redford-3/Dha/Epa/Fish Oil [Fish Oil 1 tab PO BID 04/25/17 04/08/18 1,000 mg Softgel] Terazosin [Hytrin] 10 mg PO DAILY 04/25/17 04/08/18 Valacyclovir HCl [Valacyclovir] 250 mg PO DAILY 04/25/17 04/08/18 Vit B Comp No.3/Folic/C/Biotin 1 tab PO DAILY 04/25/17 04/08/18 [Katina-Dayanna Rx Tablet] Atorvastatin Calcium 20 mg PO DAILY 04/08/18 04/08/18 Fexofenadine HCl 180 mg PO DAILY 04/08/18 04/08/18 Levothyroxine [Synthroid] 175 mcg PO QDAC 04/08/18 04/08/18 predniSONE [Prednisone] 20 mg PO DAILY 04/08/18 04/08/18 - Allergies Allergies/Adverse Reactions: Allergies Allergy/AdvReac Type Severity Reaction Status Date / Time Penicillins Allergy Anaphylaxis Verified 04/08/18 07:35 Review of Systems - Constitutional Constitutional: reports: Fatigue, Chills, Weakness, Poor appetite, Diaphoresis - Eyes Eyes: denies: Blurred vision - Ears, Nose & Throat Ears, Nose & Throat: denies: Ear pain, Tinnitus, Nasal discharge, Nasal congestion - Cardiovascular Cariovascular: reports: Exertional dyspnea, Decr. exercise tolerance. denies: Palpitations, Chest pain - Respiratory Respiratory: reports: Cough, Sputum production, SOB at rest, SOB with exertion. denies: Wheezing - Gastrointestinal Gastrointestinal: reports: Abdominal pain, Diarrhea. denies: Constipation, Vomiting - Genitourinary Genitourinary: reports: Frequency. denies: Hematuria, Incontinence - Musculoskeletal Musculoskeletal: reports: Muscle weakness - Neurological Neurological: reports: Headache. denies: Dizziness - Psychiatric Psychiatric: reports: Depression. denies: Anxiety Prior Level of Functionality: He is independent at baseline and doesn't use any assistive devices. Exam - Vital Signs Reviewed Vital Signs: Yes Vital Signs: Vital Signs x48h Temp Pulse Resp BP Pulse Ox 04/08/18 10:07 80 20 04/08/18 09:56 84 22 117/59 L 90 L 04/08/18 09:16 83 26 H 123/81 H 91 L 04/08/18 08:26 84 22 122/66 92 04/08/18 08:15 83 22 04/08/18 07:39 92 04/08/18 07:33 36.8 C 97 24 161/65 H 88 L - Physical Exam General Appearance: positive: Alert, Mild distress, Anxious Eyes Bilateral: positive: Normal inspection (wears glasses), PERRL, EOMI ENT: positive: Dry mucous membranes Neck: positive: Trachea midline Respiratory: positive: Rhonchi. negative: Wheezes, Rales Cardiovascular: positive: Regular rate & rhythm. negative: No murmur, No gallop Peripheral Pulses: positive: 2+ Abdomen: positive: Non-tender, Nml bowel sounds, No distention. negative: Guarding, Rebound Skin: positive: Warm, Dry, Pallor Extremities: positive: Non-tender, Full ROM, No pedal edema Neurologic/Psychiatric: positive: Oriented x3, CN's nml (2-12), Sensation nml, Mood/affect nml, Weakness Results - Lab Results Fish Bones: 04/08/18 08:03 04/08/18 08:03 Other Lab Results: Lab Results x24hrs 04/08/18 04/08/18 04/08/18 Range/Units 08:03 08:03 08:03 WBC (4.8-10.8) x10^3/uL RBC (4.70-6.10) 10^6/uL Hgb (14.0-18.0) g/dL Hct (42.0-52.0) % MCV (80.0-94.0) fL MCH (27.0-31.0) pg MCHC (32.0-36.0) g/dL RDW (12.0-15.0) % Plt Count (130-450) 10^3/uL MPV (7.4-11.4) fL Neut # (Auto) (1.5-6.6) 10^3/uL Lymph # (Auto) (1.5-3.5) 10^3/uL Catahoula # (Auto) (0.0-1.0) 10^3/uL Eos # (Auto) (0.0-0.7) 10^3/uL Baso # (Auto) (0.0-0.1) 10^3/uL Absolute Nucleated RBC x10^3/uL Nucleated RBC % /100WBC Sodium 129 L (135-145) mmol/L Potassium 3.2 L (3.5-5.0) mmol/L Chloride 96 L (101-111) mmol/L Carbon Dioxide 25 (21-32) mmol/L Anion Gap 8.0 (6-13) BUN 31 H (6-20) mg/dL Creatinine 1.3 H (0.6-1.2) mg/dL Estimated GFR (MDRD) 55 L (>89) Glucose 135 H (70-100) mg/dL Lactic Acid 0.8 (0.5-2.2) mmol/L Calcium 8.2 L (8.5-10.3) mg/dL Magnesium 2.0 (1.7-2.8) mg/dL Total Bilirubin 0.7 (0.2-1.0) mg/dL AST 42 (10-42) IU/L ALT 47 (10-60) IU/L Alkaline Phosphatase 43 (42-121) IU/L B-Natriuretic Peptide 166 H (5-100) pg/mL Total Protein 6.4 L (6.7-8.2) g/dL Albumin 3.3 (3.2-5.5) g/dL Globulin 3.1 (2.1-4.2) g/dL Albumin/Globulin Ratio 1.1 (1.0-2.2) Lipase 49 (22-51) U/L 04/08/18 Range/Units 08:03 WBC 5.6 (4.8-10.8) x10^3/uL RBC 3.65 L (4.70-6.10) 10^6/uL Hgb 11.6 L (14.0-18.0) g/dL Hct 32.8 L (42.0-52.0) % MCV 89.8 (80.0-94.0) fL MCH 31.7 H (27.0-31.0) pg MCHC 35.3 (32.0-36.0) g/dL RDW 14.6 (12.0-15.0) % Plt Count 133 (130-450) 10^3/uL MPV 7.6 (7.4-11.4) fL Neut # (Auto) 5.0 (1.5-6.6) 10^3/uL Lymph # (Auto) 0.2 L (1.5-3.5) 10^3/uL [place]oula # (Auto) 0.4 (0.0-1.0) 10^3/uL Eos # (Auto) 0.0 (0.0-0.7) 10^3/uL Baso # (Auto) 0.0 (0.0-0.1) 10^3/uL Absolute Nucleated RBC 0.00 x10^3/uL Nucleated RBC % 0.1 /100WBC Sodium (135-145) mmol/L Potassium (3.5-5.0) mmol/L Chloride (101-111) mmol/L Carbon Dioxide (21-32) mmol/L Anion Gap (6-13) BUN (6-20) mg/dL Creatinine (0.6-1.2) mg/dL Estimated GFR (MDRD) (>89) Glucose (70-100) mg/dL Lactic Acid (0.5-2.2) mmol/L Calcium (8.5-10.3) mg/dL Magnesium (1.7-2.8) mg/dL Total Bilirubin (0.2-1.0) mg/dL AST (10-42) IU/L ALT (10-60) IU/L Alkaline Phosphatase (42-121) IU/L B-Natriuretic Peptide (5-100) pg/mL Total Protein (6.7-8.2) g/dL Albumin (3.2-5.5) g/dL Globulin (2.1-4.2) g/dL Albumin/Globulin Ratio (1.0-2.2) Lipase (22-51) U/L - Diagnostic Imaging Results Diagnostic Imaging Results: positive: Final report reviewed Diagnostic Imaging Results Comments: 2-view CXR 04/08/2018 -- moderate coarsening of upper right lungh and mid to lower left lung airspace opacities which may reflect bronchitis or bronchopneumonia. No generalized peripheral interstitial abnormality is identified. Impression/Plan - Problem List Problem List: (1) Pneumonia: Patient presents with a productive cough and pneumonia seen on CXR. He endorses fevers/chills, although he was afebrile with a normal WBC on presentation. He was given azithromycin and cefrtiaxone in the ER. On exam, he has diffuse rhonchi with mild work of breathing. Plan: admit to inpatient status telemetry continue azithromycin and add aztreonam given reaction to penicillins RT consult acapella TID CBC in the morning (2) Dehydration: related to his acute illness. BUN/SCr 31/1.3. Baseline SCr 1.0- 1.2. He received IV fluids in the ER. Plan: continue IV fluids follow-up BMP in the morning (3) Pulmonary Hypertension: Patient is followed at . Plan: continue home dose macitentan continue valcyclovir prophylaxis stress dose steroids 60 mg prednisone daily since he is on chronic steroid therapy (4)Pulmonary fibrosis: Patient is followed at . Plan: continue valcyclovir prophylaxis hold cellcept stress dose steroids 60 mg prednisone daily obtain ABG patient will need CPAP support at night, as he wears this at home. (5) Hypokalemia: Potassium is 3.2. Plan: replace with 40 mEq IV KCl follow-up BMP in the morning (6) Hyponatremia: Na 129. Likely related to dehydration. BNP 166 Plan: continue IV fluid hydration follow-up BMP in the morning (7) Hypertension: stable Plan: hold hctz and losartan given acute renal insufficiency continue metoprolol with hold parameters (8) Depression: stable Plan: continue home medications of duloxetine and amitriptyline (9) Hyperlipidemia: stable Plan: continue atorvastatin (10) Hypothyroidism: Plan: obtain TSH and FT4 continue home levothyroxine (11) BPH: stable Plan: continue home dose finasteride and terazosin (12) Full code status: Patient elects to be a full code Core Measures - Anticipated LOS I expect patient to be DC'd or transferred within 96 hours.: Yes - DVT/VTE - Prophylaxis VTE/DVT Device ordered at admit?: Yes
[2018-04-08] MEDS ORDERED: predniSONE 20 MG TABLET PO SCH (12:00)
[2018-04-08] MEDS ORDERED: POTASSIUM CHLORIDE INJ 40 MEQ in SODIUM CHLORIDE 0.9% 480 ML IV ONE (12:00)
[2018-04-08] MEDS: IPRATROPIUM/ALBUTEROL 3 ML NEB INH SCH ×2 (13:55→20:30)
[2018-04-08] MEDS: AZTREONAM 2 GM in SODIUM CHLORIDE 0.9% MINIBAG 100 ML IV SCH ×2 (14:14→19:44)
[2018-04-08] MEDS ORDERED: ALBUTEROL NEB 2.5 MG/3 ML INH PRN (14:50)
[2018-04-08] MEDS: MORPHINE 2 MG/ML CARPUJECT IVP PRN ×2 (14:55→22:29)
[2018-04-08] MEDS ORDERED: IPRATROPIUM/ALBUTEROL 3 ML NEB INH SCH (15:00)
[2018-04-08 15:02] LABS: ABG PCO2 35 mmHg (34-45); ABG PH 7.42 (7.35-7.45)
[2018-04-08 15:03] LABS: ABG HCO3 22.1 mmol/L (22.0-26.0); ABG OXYGEN SATURATION 87 % (94-98); ABG PO2 55 mmHg (80-100); ABG TCO2 23.1 MMOL/L (21.0-29.0); ALLEN TEST POSITIVE
[2018-04-08] MEDS ORDERED: MORPHINE 2 MG/ML CARPUJECT IVP STA (15:39)
[2018-04-08] MEDS: SODIUM CHLORIDE FLUSH 0.9% 10 ML SYRINGE IVP SCH (15:55)
[2018-04-08 16:12] LABS: THYROID STIMULATING HORMONE 0.67 uIU/mL (0.34-5.60)
[2018-04-08 16:14] LABS: FREE T4 (FREE THYROXINE) 1.41 ng/dL (0.58-1.64)
[2018-04-08] MEDS: guaiFENesin 600 MG TABLET PO SCH (17:05)
[2018-04-08] MEDS ORDERED: BENZONATATE 100 MG CAPSULE PO PRN (19:02)
[2018-04-08] MEDS ORDERED: FAMOTIDINE 20 MG TABLET PO SCH (21:00)
[2018-04-08] MEDS: SODIUM CHLORIDE FLUSH 0.9% 10 ML SYRINGE IVP PRN (21:13)
[2018-04-08] MEDS: HEPARIN 5,000 UNIT/ML VIAL SUBQ SCH (21:13)
[2018-04-08] MEDS: CARVEDILOL 12.5 MG TABLET PO SCH (21:13)
[2018-04-08] MEDS: methylPREDNISolone SUCCINATE 40 MG/ML VIAL IVP SCH (21:13)
[2018-04-08] MEDS ORDERED: guaiFENesin/DEXTROMETHORPHAN 10 ML UDC PO PRN (22:50)
[2018-04-08] MEDS ORDERED: FUROSEMIDE 20 MG/2 ML VIAL IVP STA ×2 (23:48)
--- NOTE | 2018-04-09 00:15 | XRAY Report ---
Reason: crackles, increased SOB Procedure Date: 04/08/2018 Accession Number: [id number] / [id number] Procedure: XR - Chest 1 View X-Ray CPT Code: 94062 FULL RESULT: EXAM: CHEST RADIOGRAPHY EXAM DATE: 04/08/2018 11:16 PM. CLINICAL HISTORY: Crackles, increased SOB. COMPARISON: CHEST 2 VIEW 04/08/2018 7:54 AM. TECHNIQUE: 1 view. FINDINGS: Lungs/Pleura: Compared to the prior study there has been progression in the bilateral interstitial infiltrates throughout the lungs. In addition, there is persistent partial volume loss of the right upper lobe. Mediastinum: Level of inspiration is low. The heart size remains enlarged. Mediastinal contours are prominent yet indeterminant on a bedside film. Other: None. IMPRESSION: 1. Progressive bilateral interstitial infiltrates. 2. Persistent partial volume loss right upper lobe. RADIA
[2018-04-09] MEDS: MORPHINE 2 MG/ML CARPUJECT IVP PRN ×2 (01:42→08:36)
[2018-04-09] MEDS: AZTREONAM 2 GM in SODIUM CHLORIDE 0.9% MINIBAG 100 ML IV SCH ×4 (01:44→20:17)
[2018-04-09] MEDS: SODIUM CHLORIDE FLUSH 0.9% 10 ML SYRINGE IVP SCH ×3 (02:57→17:48)
[2018-04-09 05:18] LABS: BASOPHILS % (AUTO) 0.2 %; HGB - HEMOGLOBIN 12.1 g/dL (14.0-18.0); LYMPHOCYTES # (AUTO) 0.2 10^3/uL (1.5-3.5); MEAN CORPUSCULAR HEMOGLOBIN 31.1 pg (27.0-31.0); MEAN CORPUSCULAR HGB CONC 33.6 g/dL (32.0-36.0); MEAN CORPUSCULAR VOLUME 92.5 fL (80.0-94.0); MEAN PLATELET VOLUME 7.6 fL (7.4-11.4); MONOCYTES # (AUTO) 0.4 10^3/uL (0.0-1.0); MONOCYTES % (AUTO) 3.8 %; NEUTROPHILS # (AUTO) 10.4 10^3/uL (1.5-6.6); PLT - PLATELET COUNT 161 10^3/uL (130-450); RED CELL DISTRIBUTION WIDTH 14.5 % (12.0-15.0); WHITE BLOOD COUNT 11.1 x10^3/uL (4.8-10.8)
[2018-04-09 05:28] LABS: CALCIUM 7.5 mg/dL (8.5-10.3)
--- NOTE | 2018-04-09 06:16 | PROVIDER PROGRESS NOTE ---
Wood Router Note - Wood Router Note Wood Router Note: Patient began experiencing increased work of breathing. His respiratory rate increased and sustained in the 30's while his O2Sat dropped below 90% even on the oximizer CXR order showed progression in bilateral interstitial infiltrates throughout the lungs. His lungs sounded significantly rhonchous. His IV fluids were discontinued. He was given 40mg IV lasix with only 300ml of urine out put He expressed that he was getting tired and visibly appeared fatigued. As a result he was transferred to the ICU and placed on the bipap at 12/6 with FiO2 of 75%. His respiratory rate improved to the 20's with his O2Dat at 93%.
[2018-04-09] MEDS: methylPREDNISolone SUCCINATE 40 MG/ML VIAL IVP SCH ×2 (06:17→14:22)
[2018-04-09] MEDS ORDERED: LEVOTHYROXINE 75 MCG TABLET PO SCH (07:00)
[2018-04-09] MEDS ORDERED: LEVOTHYROXINE 100 MCG TABLET PO SCH (07:00)
[2018-04-09 07:24] LABS: ABG BASE EXCESS -2.5 mmol/L (-2.0-3.0); ABG HCO3 21.7 mmol/L (22.0-26.0); ABG OXYGEN SATURATION 90 % (94-98); ABG PCO2 35 mmHg (34-45); ABG PH 7.41 (7.35-7.45); ABG PO2 59 mmHg (80-100); ABG TCO2 22.8 MMOL/L (21.0-29.0); ALLEN TEST POSITIVE
[2018-04-09] MEDS: IPRATROPIUM/ALBUTEROL 3 ML NEB INH SCH ×3 (07:33→20:22)
[2018-04-09] MEDS ORDERED: SODIUM CHLORIDE 0.9% MINIBAG 100 ML IV ONE (07:50)
[2018-04-09] MEDS: SODIUM CHLORIDE FLUSH 0.9% 10 ML SYRINGE IVP PRN ×2 (07:53→14:22)
[2018-04-09] MEDS: CARVEDILOL 12.5 MG TABLET PO SCH (08:13)
[2018-04-09] MEDS: HEPARIN 5,000 UNIT/ML VIAL SUBQ SCH (08:15)
[2018-04-09] MEDS: guaiFENesin 600 MG TABLET PO SCH (08:15)
[2018-04-09] MEDS ORDERED: POLYETHYLENE GLYCOL 3350 17 GM PACKET PO SCH (09:00)
[2018-04-09] MEDS ORDERED: ATORVASTATIN 10 MG TABLET PO SCH (09:00)
[2018-04-09] MEDS ORDERED: FINASTERIDE 5 MG TABLET PO SCH (09:00)
[2018-04-09] MEDS ORDERED: TERAZOSIN 5 MG CAPSULE PO SCH (09:00)
[2018-04-09] MEDS ORDERED: DULoxetine 30 MG CAPSULE PO SCH (09:00)
[2018-04-09] MEDS ORDERED: MACITENTAN 10 MG PO SCH ×2 (09:00)
[2018-04-09] MEDS ORDERED: AMITRIPTYLINE 25 MG TABLET PO SCH (09:00)
[2018-04-09] MEDS ORDERED: cefTRIAXone 1 GM in SODIUM CHLORIDE 0.9% MINIBAG 100 ML IV SCH (09:00)
[2018-04-09] MEDS ORDERED: ASPIRIN EC 81 MG TABLET PO SCH (09:00)
[2018-04-09] MEDS ORDERED: valACYclovir 500 MG TABLET PO SCH (09:00)
[2018-04-09] MEDS ORDERED: AZITHROMYCIN INJ 500 MG in SODIUM CHLORIDE 0.9% 250 ML IV SCH (09:00)
[2018-04-09] MEDS ORDERED: FEXOFENADINE 60 MG TABLET PO SCH (09:00)
[2018-04-09] MEDS ORDERED: guaiFENesin 600 MG TABLET PO SCH (09:00)
[2018-04-09] MEDS ORDERED: FAMOTIDINE 20 MG TABLET PO SCH (09:00)
[2018-04-09] MEDS ORDERED: LIDOCAINE 2% URO-JET 5 ML SYRINGE UR ONE (12:18)
[2018-04-09] MEDS ORDERED: MIDAZOLAM DRIP 50 MG/100 ML BAG IV SCH (16:11)
[2018-04-09] MEDS ORDERED: LORazepam 2 MG/ML VIAL IVP PRN (17:31)
[2018-04-09 17:39] LABS: ABG HCO3 25.3 mmol/L (22.0-26.0); ABG OXYGEN SATURATION 88 % (94-98); ABG PCO2 43 mmHg (34-45); ABG PH 7.38 (7.35-7.45); ABG PO2 57 mmHg (80-100); ABG TCO2 26.6 MMOL/L (21.0-29.0); ALLEN TEST POSITIVE
[2018-04-09] MEDS ORDERED: methylPREDNISolone SUCCINATE 40 MG/ML VIAL IVP ONE (17:44)
[2018-04-09] MEDS ORDERED: PROPOFOL 1000 MG/100 ML 100 ML IV SCH (18:00)
--- NOTE | 2018-04-09 18:17 | XRAY Report ---
Reason: S/P intubation and ng tube placement Procedure Date: 04/09/2018 Accession Number: [id number] / [id number] Procedure: XR - Chest 1 View X-Ray CPT Code: 08108 FULL RESULT: EXAM: CHEST RADIOGRAPHY EXAM DATE: 04/09/2018 05:10 PM. CLINICAL HISTORY: S/P intubation and ng tube placement. COMPARISON: CHEST 1 VIEW 04/08/2018 11:03 PM. TECHNIQUE: 1 view. FINDINGS: Lungs/Pleura: Diffuse left-sided infiltrates. Infiltrates right upper lobe, right lower lobe. Superior retraction of the minor fissure. No definite effusion. Mediastinum: Post sternotomy. Stable cardiomegaly Other: ET tube above the janet. NG tube not well seen may be in midesophagus IMPRESSION: 1. Asymmetrical left greater than right-sided infiltrates will not be changed. 2. Stable cardiomegaly. 3. NG tube not well seen and maybe in midesophagus RADIA
[2018-04-09] MEDS ORDERED: D5NS W/20 MEQ KCL 1,000 ML IV SCH (19:00)
--- NOTE | 2018-04-09 19:10 | ADVANCE CARE PLANNING NOTE ---
Advance Care Planning - Purpose of encounter Text: To establish his wishes for ventilator care - Parties in attendance Parties in attendance: I spoke to the patient in his room, he was sitting up in a chair on BIPAP, then I contacted his by phone, then again I spoke in his room with patient more somnolent (on BIPAP), also his and daughter were in the room. - Decisional capacity Decisional capacity of: He has capacity and said he wanted to be intubated but wanted the to be made abreast of that decision. That is when I spoke to her by phone, then she came into the hospital. At the second discussion in his room, the patient was nodding off to sleep, possibly from CO2 retention and fatigue. The was alerted to that. He was able to voice agreement initially. She also did want everything done, including elective intubation, sedation and transfer to . - Subjective/Patient's story Subjective/Patient's story: He presented with URI symptoms, that he caught from family members. He worsened and was admitted yesterday with pneumonia, hypoxia and wheezing. He worsened again and needed to be transferred to the ICU for BIPAP and higher O2. - Objective/Medical story Objective/Medical Story: The patient has Pulmonary Fibrosis and Pulm HTN and is followed at the by the Supervisor [employer], and also by a specialist for his Scleroderma. One week ago he developed URI and flu-like sx and came to the ER 5 days ago, was managed and released and worsened and came to the ER yesterday with sats of 80%, tachypneic with respiratory rate of 20-25, wheezing which improved with nebs. He was admitted, started on iv steroids, nebs and iv antibiotics for a Community Acquired PNA and was Influenza swab (+). No Tamiflu was started yesterday peggy use he had presented too late for benefit to outway risk. Overnight his sats dropped and he required ICU transfer and O2 8L via oximizer was increased to BIPAP with 75% FIO2. The a.m. CXR showed worsening bilateral diffuse fluffy infiltrates, worrisome for ARDS. His ABGs showed poor oxygenation on this management. I reached out to and the [facility] agreed to accept him in transfer but wanted the discussion to be had about intubation and being on a ventilator, before transfer and possibly being ventilator dependant. - Goals of Care Goals of care determinations: He wants everything done. He has never been intubated before (except for elective open heart surgery management 9 years ago). He wants to be intubated to have airway and pulmonary management and be transferred to [facility] for higher level of care. - Plan Plan: Will plan intubation, iv sedatives, transfer to higher level of care on a v entilator. - Code Status Code Status: Attempt Resuscitation - Time Spent on Advance Care Planning Time spent on advance care plannin min
[2018-04-09 20:09] VITALS: BP 92/57
[2018-04-09] MEDS ORDERED: SODIUM CHLORIDE 0.9% 1,000 ML IV SCH (21:00)
[2018-04-09] MEDS ORDERED: MIDAZOLAM 2 MG/2 ML VIAL ONE ×4 (21:25→21:29)
[2018-04-09] MEDS ORDERED: methylPREDNISolone SUCCINATE 40 MG/ML VIAL IVP SCH (22:00)
--- NOTE | 2018-04-11 21:36 | DISCHARGE SUMMARY ---
Physician: Sherry Connolly MD DATE OF ADMISSION: 04/08/2018 DATE OF DISCHARGE: 04/09/2018 HISTORY OF PRESENT ILLNESS: This is a 67-year-old white male with a history of scleroderma and he is followed by specialist at , history of pulmonary fibrosis with pulmonary hypertension for which he is followed by a kettle coordinator at , hypothyroidism, depression, hypertension and BPH. The patient presented to the emergency room here after having a cough and flu-like symptoms for five days, which he caught from his family members. He was considered having influenza, it was not swabbed however, because he was out of the window of getting Tamiflu because symptoms started five days previously. He was stabilized and sent home, but continued to worsen and two days later presented to the hospital for this admission. He was markedly short of breath, had pursed lip breathing, wheezing and did have benefit from a nebulizer in the emergency room and was admitted for management of his respiratory status. Chest x-ray showed bilateral infiltrates felt to be community-acquired pneumonia. He was swabbed and was positive for influenza A and was put on isolation precautions. HOSPITAL COURSE AND DISCHARGE DIAGNOSES 1. Acute respiratory distress syndrome. The first night of admission, he had worsening shortness of breath, desaturated to 80% despite supplemental oxygen via oximizer, required transfer to the ICU for using BiPAP. He improved, but after a day in the ICU had continued clinical worsening with respiratory fatigue, desaturations despite highest FiO2 setting of 75%. His chest x-ray showed progressing bilateral, diffuse fluffy infiltrates, suspicious for ARDS. I reached out to the [employer] at and the patient was kindly accepted in transfer to their ICU. Prior to this, he was intubated electively by our Anesthesiologist, placed on 100% FiO2 and required iv Versed and IV Propofol drips for sedation. 2. Community-acquired pneumonia. The patient was on empiric treatment for bacterial pneumonia using IV ceftriaxone and IV Zithromax. The possibility existed that he had viral pneumonia as well, which was worsening. 3. Pulmonary fibrosis. This is his underlying condition for which he requires chronic steroids and home oxygen. 4. Influenza A. The swab that was positive for influenza A was approximately seven days out from his initial symptoms. 5. Scleroderma. The family reported that he has a history lung involvement and esophageal narrowing secondary to scleroderma. 6. Hypothyroidism. The patient was kept on his thyroid replacement therapy while here. 7. Hypertension. The patient's blood pressure was managed on his usual medications. 8. Dehydration. He required peripheral IV hydration due to progressively poor p.o. intake over the five days of pre-hospital symptoms and two days of hospitalization here. 9. Hypokalemia. This was felt to be from poor dietary intake and potassium was replaced via IV. 10. Hyponatremia. The patient was felt to be hypovolemic and required iv saline for sodium replacement. ALLERGIES: PENICILLINS, WHICH CAUSED ANAPHYLAXIS IN THE PAST. LABORATORY AND IMAGING: Reviewed and summarized above. CONDITION AT DISCHARGE: Critical. PHYSICAL EXAMINATION VITAL SIGNS: Blood pressure 92/57, pulse of 77-97 in sinus rhythm, respiratory rate 18, sedated on SIMV settings on a ventilator. HEENT: Showed dry oral mucosa. NECK: Without JVD. CHEST: Poor air movement and scattered wheezes. HEART: Sounds are distant. ABDOMEN: Soft, decreased bowel sounds. EXTREMITIES: Had no rash, no edema. NEUROLOGIC: Intact, but he was sedated at the time of transfer. FOLLOWUP: This will be determined after his stay at [facility]. CODE STATUS: FULL CODE. Time required to complete this entire discharge, chart review, discussion with medical providers at [facility] and the accepting [employer], discussion with the patient, , and daughter: 60 minutes. cc: Chelsea Beltre MD TD: 04/11/2018 19:32 MTDD
== END 2018-04-09 21:49 | disposition short-term general hospital (02) | DRG 208 ==
LOC: ED 07:25 → MS2 10:22 → ICU 04-09 02:06
PROVIDERS: ADMIT Nurse Practitioner; ATTEND Internal Medicine
PROC: 0BH17EZ Insertion of Endotracheal Airway into Trachea, Via Natural or Artificial Opening (ICD-10-PCS; principal; 2018-04-09)
PROC: 5A1935Z Respiratory Ventilation, Less than 24 Consecutive Hours (ICD-10-PCS; 2018-04-09)
DX: R07.81 Pleurodynia (principal); J80 Acute respiratory distress syndrome; R09.02 Hypoxemia; J18.1 Lobar pneumonia, unspecified organism; J10.08 Influenza due to other identified influenza virus with other specified pneumonia; J15.9 Unspecified bacterial pneumonia; E87.1 Hypo-osmolality and hyponatremia; J84.10 Pulmonary fibrosis, unspecified; E87.6 Hypokalemia; G47.30 Sleep apnea, unspecified; M34.9 Systemic sclerosis, unspecified; E03.9 Hypothyroidism, unspecified; I10 Essential (primary) hypertension; E86.0 Dehydration; I27.20 Pulmonary hypertension, unspecified; E78.5 Hyperlipidemia, unspecified; F32.9 Major depressive disorder, single episode, unspecified; N40.0 Benign prostatic hyperplasia without lower urinary tract symptoms; Z79.51 Long term (current) use of inhaled steroids; Z79.82 Long term (current) use of aspirin; Z79.52 Long term (current) use of systemic steroids; Z87.01 Personal history of pneumonia (recurrent); Z95.2 Presence of prosthetic heart valve
CPT/HCPCS: 36415; 36600; 71045; 71046; 80048; 80053; 82803; 83605; 83690; 83735; 83880; 84439; 84443; 85025; 87150; 87275; 87276; 94640; 94660; 94770; 96365; 96375; 99283; 99284